=== PATIENT | male | born 1980 | race Hispanic/Latino ===

== ENCOUNTER 2020-11-02 10:17 | Emergency (ER) | payer OTHER ==
--- NOTE | 2020-11-02 10:28 | Emergency Department Report ---
ED General Adult HPI - General Stated complaint: POSS CVA Time Seen by Provider: 11/02/20 10:24 Source: patient, EMS - History of Present Illness Initial comments: The patient presents to the emergency department with a chief complaint of left- sided weakness that started 30 minutes prior to arrival. The patient states that at 5 AM this morning he woke up and had tingling in his left and right arm. Patient states upon arriving to work he began to have weakness and lack of control of his left arm. Patient states unable to make the left forearm function in the manner that he wants it to. Patient states he has a history of hypertension and is on 2 hypertensive medications which are lisinopril and hydrochlorothiazide. Patient also has a history of hyperlipidemia. Patient denies chest pain, shortness of breath, or headache. -: Sudden Severity scale (0 -10): 0 Consistency: constant Improves with: none Worsens with: none Associated Symptoms: denies other symptoms Treatments Prior to Arrival: none - Related Data Home Medications Medication Instructions Recorded Confirmed Last Taken Ezetimibe [Zetia] 10 mg PO DAILY 11/02/20 11/02/20 Unknown Rosuvastatin Calcium [Ezallor 5 mg PO DAILY 11/02/20 11/02/20 Unknown Sprinkle] hydroCHLOROthiazide 12.5 mg PO DAILY 11/02/20 11/02/20 Unknown [Hydrochlorothiazide] lisinopriL [Lisinopril] 20 mg PO DAILY 11/02/20 11/02/20 Unknown Allergies Allergy/AdvReac Type Severity Reaction Status Date / Time azithromycin Allergy Unknown Verified 11/02/20 10:42 ED Review of Systems ROS: Stated complaint: POSS CVA Other details as noted in HPI Constitutional: denies: chills, fever Eyes: denies: eye pain, eye discharge, vision change ENT: denies: ear pain, throat pain Respiratory: denies: cough, shortness of breath, wheezing Cardiovascular: denies: chest pain, palpitations Endocrine: no symptoms reported Gastrointestinal: denies: abdominal pain, nausea, diarrhea Genitourinary: denies: urgency, dysuria Musculoskeletal: denies: back pain, joint swelling, arthralgia Skin: denies: rash, lesions Neurological: weakness, numbness. denies: headache, paresthesias Psychiatric: denies: anxiety, depression Hematological/Lymphatic: denies: easy bleeding, easy bruising ED Past Medical Hx - Medications Home Medications: Home Medications Medication Instructions Recorded Confirmed Last Taken Type Ezetimibe [Zetia] 10 mg PO DAILY 11/02/20 11/02/20 Unknown History Rosuvastatin Calcium [Ezallor 5 mg PO DAILY 11/02/20 11/02/20 Unknown History Sprinkle] hydroCHLOROthiazide 12.5 mg PO DAILY 11/02/20 11/02/20 Unknown History [Hydrochlorothiazide] lisinopriL [Lisinopril] 20 mg PO DAILY 11/02/20 11/02/20 Unknown History ED Physical Exam - General General appearance: alert, in no apparent distress - Head Head exam: Present: atraumatic, normocephalic - Eye Eye exam: Present: normal appearance, PERRL, EOMI - ENT ENT exam: Present: mucous membranes moist - Neck Neck exam: Present: normal inspection - Respiratory Respiratory exam: Present: normal lung sounds bilaterally. Absent: respiratory distress - Cardiovascular Cardiovascular Exam: Present: regular rate, normal rhythm. Absent: systolic murmur, diastolic murmur, rubs, gallop - GI/Abdominal GI/Abdominal exam: Present: soft, normal bowel sounds - Rectal Rectal exam: Present: deferred - Extremities Exam Extremities exam: Present: normal inspection - Back Exam Back exam: Present: normal inspection - Neurological Exam Neurological exam: Present: alert, oriented X3, CN II-XII intact, other (Patient has 4 out of 5 strength of the left upper and left lower extremity) - Psychiatric Psychiatric exam: Present: normal affect, normal mood - Skin Skin exam: Present: warm, dry, intact, normal color. Absent: rash ED Course Vital Signs 11/02/20 11/02/20 11/02/20 10:39 10:46 10:58 Temperature Pulse Rate 78 84 Respiratory 16 18 18 Rate Blood Pressure 183/96 Blood Pressure 173/89 [Right] O2 Sat by Pulse 98 97 97 Oximetry 11/02/20 11/02/20 11/02/20 10:59 11:29 11:32 Temperature 98.3 F Pulse Rate 82 84 Respiratory 18 Rate Blood Pressure 175/92 Blood Pressure 175/92 [Right] O2 Sat by Pulse 98 Oximetry ED Medical Decision Making - Lab Data Result diagrams: 11/02/20 10:58 11/02/20 10:58 Lab Results 11/02/20 11/02/20 11/02/20 Range/Units 10:58 10:58 10:58 WBC 7.2 (4.5-11.0) K/mm3 RBC 4.80 (3.65-5.03) M/mm3 Hgb 14.6 (11.8-15.2) gm/dl Hct 42.4 (35.5-45.6) % MCV 88 (84-94) fl MCH 30 (28-32) pg MCHC 34 (32-34) % RDW 13.2 (13.2-15.2) % Plt Count 258 (140-440) K/mm3 Lymph % (Auto) 29.2 (13.4-35.0) % [place] % (Auto) 6.6 (0.0-7.3) % Eos % (Auto) 2.7 (0.0-4.3) % Baso % (Auto) 0.6 (0.0-1.8) % Lymph # (Auto) 2.1 (1.2-5.4) K/mm3 [place] # (Auto) 0.5 (0.0-0.8) K/mm3 Eos # (Auto) 0.2 (0.0-0.4) K/mm3 Baso # (Auto) 0.0 (0.0-0.1) K/mm3 Seg Neutrophils % 60.9 (40.0-70.0) % Seg Neutrophils # 4.4 (1.8-7.7) K/mm3 PT 13.0 (12.2-14.9) Sec. INR 0.99 (0.87-1.13) APTT 31.5 (24.2-36.6) Sec. Thrombin Time 18.0 (15.1-19.6) Sec. Sodium 141 (137-145) mmol/L Potassium 4.0 (3.6-5.0) mmol/L Chloride 104.3 (98-107) mmol/L Carbon Dioxide 28 (22-30) mmol/L Anion Gap 13 mmol/L BUN 14 (9-20) mg/dL Creatinine 0.9 (0.8-1.3) mg/dL Estimated GFR > 60 ml/min BUN/Creatinine Ratio 16 % Glucose 116 H (75-100) mg/dL Calcium 8.9 (8.4-10.2) mg/dL Total Bilirubin 0.40 (0.1-1.2) mg/dL AST 23 (5-40) units/L ALT 53 (7-56) units/L Alkaline Phosphatase 73 (35-129) units/L Total Creatine Kinase 81 (55-170) units/L CK-MB (CK-2) 1.7 (0.0-4.0) ng/mL Troponin T < 0.010 (0.00-0.029) ng/mL Total Protein 6.7 (6.3-8.2) g/dL Albumin 4.6 (3.9-5) g/dL Albumin/Globulin Ratio 2.2 % Plasma/Serum Alcohol (0-0.07) % 11/02/20 Range/Units 10:58 WBC (4.5-11.0) K/mm3 RBC (3.65-5.03) M/mm3 Hgb (11.8-15.2) gm/dl Hct (35.5-45.6) % MCV (84-94) fl MCH (28-32) pg MCHC (32-34) % RDW (13.2-15.2) % Plt Count (140-440) K/mm3 Lymph % (Auto) (13.4-35.0) % [place] % (Auto) (0.0-7.3) % Eos % (Auto) (0.0-4.3) % Baso % (Auto) (0.0-1.8) % Lymph # (Auto) (1.2-5.4) K/mm3 [place] # (Auto) (0.0-0.8) K/mm3 Eos # (Auto) (0.0-0.4) K/mm3 Baso # (Auto) (0.0-0.1) K/mm3 Seg Neutrophils % (40.0-70.0) % Seg Neutrophils # (1.8-7.7) K/mm3 PT (12.2-14.9) Sec. INR (0.87-1.13) APTT (24.2-36.6) Sec. Thrombin Time (15.1-19.6) Sec. Sodium (137-145) mmol/L Potassium (3.6-5.0) mmol/L Chloride (98-107) mmol/L Carbon Dioxide (22-30) mmol/L Anion Gap mmol/L BUN (9-20) mg/dL Creatinine (0.8-1.3) mg/dL Estimated GFR ml/min BUN/Creatinine Ratio % Glucose (75-100) mg/dL Calcium (8.4-10.2) mg/dL Total Bilirubin (0.1-1.2) mg/dL AST (5-40) units/L ALT (7-56) units/L Alkaline Phosphatase (35-129) units/L Total Creatine Kinase (55-170) units/L CK-MB (CK-2) (0.0-4.0) ng/mL Troponin T (0.00-0.029) ng/mL Total Protein (6.3-8.2) g/dL Albumin (3.9-5) g/dL Albumin/Globulin Ratio % Plasma/Serum Alcohol < 0.01 (0-0.07) % - Medical Decision Making Received a phone call from the radiologist Dr. Hackett at 1055 a.m. confirming intraparenchymal bleed Contacted [facility] at 1058 and received a phone call back at 11:[address] Kenyon who informed me they did not have any neuro intensive beds available Contacted [facility] at 11:11 AM and [address] Roth and was informed that there were no available beds Contacted [facility] at 11:[address] Olivo at [facility] and the patient was excepted Patient was started on Cardene drip Critical Care Time: Yes Critical care time in (mins) excluding proc time.: 45 Critical care attestation.: If time is entered above; I have spent that time in minutes in the direct care of this critically ill patient, excluding procedure time. ED Disposition Clinical Impression: Intraparenchymal hemorrhage of brain Disposition: DC/TX-70 ANOTHER TYPE HLTHCARE Is pt being admited?: No Does the pt Need Aspirin: No Condition: Fair Referrals: PRIMARY CARE,MD [Primary Care Provider] - 3-5 Days - Assessment Assessment Interval: Baseline - Level of Consciousness 1a. Level of Consciousness: alert/keenly responsive - LOC Questions 1b. LOC Questions: answers both correctly - LOC Command 1c. LOC Commands: performs tasks correctly - Best Gaze 2. Best Gaze: normal - Visual 3. Visual: no visual loss - Facial Palsy 4. Facial Palsy: normal symmetrical movement - Motor Arm 5a. Motor Arm Left: drift 5b. Motor Arm Right: no drift - Motor Leg 6a. Motor Leg Left: drift 6b. Motor Leg Right: no drift - Limb Ataxia 7. Limb Ataxia: present 1 limb - Sensory 8. Sensory: normal - Best Language 9. Best Language: no aphasia - Dysarthria 10. Dysarthria: normal - Extinction and Inattention 11. Extinction/Inattention: no abnormality - Scoring Total Score: 3 Stroke Severity: Minor Stroke
--- NOTE | 2020-11-02 10:54 | XRay Report ---
CHEST 1 VIEW 11/02/2020 10:46 AM INDICATION / CLINICAL INFORMATION: suspected cva. COMPARISON: None available. FINDINGS: SUPPORT DEVICES: None. HEART / MEDIASTINUM: Upper limits normal size cardiac silhouette. Otherwise unremarkable mediastinal and hilar contours. LUNGS / PLEURA: Low lung volumes without convincing evidence of acute pulmonary parenchymal or pleura l abnormalities. No pneumothorax. ADDITIONAL FINDINGS: No significant additional findings. IMPRESSION: 1. No acute findings. Signer Name: Mitchell Bain MD Signed: 11/02/2020 10:50 AM Workstation Name: [id number]
--- NOTE | 2020-11-02 11:00 | Cat Scan Report ---
CT HEAD WITHOUT CONTRAST INDICATION : Code stroke, right-sided weakness. TECHNIQUE: Axial imaging performed from the skull apex through the skull base without the use of con trast. Sagittal and coronal reformatted images. All CT scans at this location are performed using C T dose reduction for ALARA by means of automated exposure control. COMPARISON: None FINDINGS: Parenchyma: A 2.7 x 2.7 x 1.4 cm acute hemorrhage is identified in the posterior lateral right thala mus which extends superiorly to the right leblanc radiata. There is mild surrounding parenchymal edema but no significant mass effect or midline shift. No other hemorrhage or acute parenchymal abnormalit y is detected. Minimal chronic white matter changes are noted in the frontal lobes. No extra-axial fl uid collection. Ventricles: Ventricles are normal in size and appear symmetric. Bones: No acute osseous abnormality. Sinuses: Sinuses and mastoid air cells are clear. Soft tissues: Soft tissues including the orbits appear normal. IMPRESSION: Right thalamic hemorrhage as described. CRITICAL RESULT: Time of Discovery (LEVELMAN/CDT): 0953 hours Time of Communication (LEVELMAN/CDT): 0955 hours Licensed Practitioner Receiving Report: Billy Morin Read-Back Performed: Yes. Signer Name: Sloan Hackett Jr, MD Signed: 11/02/2020 10:56 AM Workstation Name: [id number]
[2020-11-02 11:06] LABS: Basophils % (Auto) 0.6 % (0.0-1.8); Eosinophils # (Auto) 0.2 K/mm3 (0.0-0.4); Eosinophils % (Auto) 2.7 % (0.0-4.3); Hematocrit 42.4 % (35.5-45.6); Hemoglobin 14.6 gm/dl (11.8-15.2); Lymphocytes # (Auto) 2.1 K/mm3 (1.2-5.4); Lymphocytes % (Auto) 29.2 % (13.4-35.0); Mean Corpuscular HGB Conc 34 % (32-34); Mean Corpuscular Volume 88 fl (84-94); Monocytes # (Auto) 0.5 K/mm3 (0.0-0.8); Monocytes % (Auto) 6.6 % (0.0-7.3); Platelet Count 258 K/mm3 (140-440); Red Cell Distribution Width 13.2 % (13.2-15.2)
[2020-11-02 11:16] LABS: INR 0.99 (0.87-1.13)
[2020-11-02 11:17] LABS: Partial Thromboplastin Time 31.5 Sec. (24.2-36.6)
[2020-11-02 11:32] LABS: Creatine Kinase MB 1.7 ng/mL (0.0-4.0)
[2020-11-02 11:33] LABS: Alanine Aminotransferase 53 units/L (7-56); Albumin 4.6 g/dL (3.9-5); BUN/Creatinine Ratio 16; Blood Urea Nitrogen 14 mg/dL (9-20); Calcium 8.9 mg/dL (8.4-10.2); Hemolysis Index 10
[2020-11-02] MEDS ORDERED: niCARdipine 50 MG in SODIUM CHLORIDE 0.9% 250ML 230 ML IV SCH (12:00)
[2020-11-02 12:08] VITALS: BP 151/86
[2020-11-02 12:38] LABS: Bacteria,Urine 1+ /HPF (Negative); Bilirubin,Urine NEG (Negative); Blood,Urine SM (Negative); Color,Urine Yellow (Yellow); Mucus,Urine FEW /HPF; Protein,Urine <15 mg/dL mg/dL (Negative); Urobilinogen,Urine < 2.0 mg/dL (<2.0); WBC,Urine < 1.0 /HPF (0.0-6.0)
== END 2020-11-02 12:52 | disposition other institution (70) ==
LOC: ED 10:17
DX: I61.9 Nontraumatic intracerebral hemorrhage, unspecified (principal); Z79.899 Other long term (current) drug therapy; Z88.8 Allergy status to other drugs, medicaments and biological substances
CPT/HCPCS: 36415; 70450; 71045; 80053; 81001; 82550; 82553; 82962; 84484; 85025; 85610; 85670; 85730; 93005; 96365; 96375; 99291; J7050; 80320; G0480